=== PATIENT | male | born 1980 | race African-American/Black ===

== ENCOUNTER 2016-11-29 11:32 | Emergency (ER) | payer SELFPAY ==
[~2016-11-29] VITALS: Ht 198.1 cm; Wt 98.9 kg
[2016-11-29 12:36] VITALS: BP 126/86
== END 2016-11-29 14:36 | disposition home or self-care (01) ==
LOC: ER 11:32
DX: S00.03XA Contusion of scalp, initial encounter (principal); S00.83XA Contusion of other part of head, initial encounter; W22.8XXA Striking against or struck by other objects, initial encounter; Y93.89 Activity, other specified; Y92.89 Other specified places as the place of occurrence of the external cause; Y99.8 Other external cause status
CPT/HCPCS: 70450; 70486